=== PATIENT | female | born 1970 | race Caucasian/White ===

== ENCOUNTER 2017-05-15 07:29 | Inpatient (IN) | payer MEDICAID ==
[2017-05-15] MEDS: KETOROLAC 15 MG INJ IV ×2 (13:00→23:01)
[2017-05-15 13:20] LABS: ADD MAN DIFF? NO
[2017-05-15 13:23] LABS: BASOPHILS % 0.4 % (0.0-2.0); EOSINOPHILS % 0.6 % (0.0-7.0); HEMATOCRIT 39.1 % (37.0-47.0); HEMOGLOBIN 13.4 g/dl (12.0-16.0); LYMPHOCYTES # 1.7 10^3/ul (0.8-2.9); LYMPHOCYTES % 24.7 % (15.0-51.0); MEAN CORPUSCULAR HEMOGLOBIN 32.3 pg (29.0-33.0); MEAN CORPUSCULAR HGB CONC 34.3 g/dl (32.0-37.0); MEAN CORPUSCULAR VOLUME 94.2 fl (82.0-101.0); MONOCYTE # 0.5 10^3/ul (0.3-0.9); MONOCYTES % 6.7 % (0.0-11.0); NEUTROPHIL # 4.7 10^3/ul (1.6-7.5); NEUTROPHILS % 67.3 % (39.0-77.0); PLATELET COUNT 241 10^3/UL (140-415); RED BLOOD COUNT 4.15 10^6/ul (4.20-5.40); RED CELL DISTRIBUTION WIDTH 12.5 % (11.5-14.5)
[2017-05-15 13:48] LABS: ALANINE AMINOTRANSFERASE 36 IU/L (13-69); ALBUMIN 4.2 g/dl (3.3-4.9); ALBUMIN/GLOBULIN RATIO 1.31; ALKALINE PHOSPHATASE 70 IU/L (42-121); ANION GAP 12 (8-16); ASPARTATE AMINO TRANSFERASE 20 IU/L (15-46); BILIRUBIN,INDIRECT 0.2 mg/dl (0-1.1); BILIRUBIN,TOTAL 0.2 mg/dl (0.2-1.3); BLOOD UREA NITROGEN 8 mg/dl (7-20); CALCIUM 9.3 mg/dl (8.4-10.2); CARBON DIOXIDE 28 mmol/L (21-31); CHLORIDE 103 mmol/L (97-110); CREATININE 0.52 mg/dl (0.44-1.00); GLUCOSE 100 mg/dl (70-220); POTASSIUM 3.8 mmol/L (3.5-5.1); SODIUM 139 mmol/L (135-144); TOTAL PROTEIN 7.4 g/dl (6.1-8.1)
[2017-05-15] MEDS: morphine 2 MG INJ IV (15:43)
[2017-05-15] MEDS: HYDROCODONE/APAP (10/325) TAB PO (16:01)
[2017-05-15] MEDS ORDERED: NAPROXEN 500 MG TAB PO (17:30)
[2017-05-15] MEDS ORDERED: traMADol 50 MG TAB PO (17:30)
[2017-05-15] MEDS ORDERED: ONDANSETRON 4 MG INJ IV (17:30)
[2017-05-15] MEDS ORDERED: NACL 0.9% 3 ML SYG IV (17:30)
[2017-05-15] MEDS: DEXTROSE 5%-0.45% NACL 1,000 ML IV (17:36)
[2017-05-15] MEDS: FAMOTIDINE 20 MG TAB PO (20:08)
[2017-05-15] MEDS ORDERED: NEOSTIGMINE 3 MG/3 ML SYRINGE (20:48)
[2017-05-15] MEDS ORDERED: ROCURONIUM 50 MG INJ (20:48)
[2017-05-15] MEDS ORDERED: GLYCOPYRROLATE 0.4 MG INJ (20:48)
[2017-05-15] MEDS ORDERED: CEFAZOLIN 1 GM INJ (20:48)
[2017-05-15] MEDS ORDERED: PROPOFOL 20 ML (20:48)
[2017-05-15] MEDS ORDERED: MIDAZOLAM 1 MG/ML 2 ML INJ (20:48)
[2017-05-15] MEDS ORDERED: DEXAMETHASONE 4 MG/ML 1 ML INJ (20:49)
[2017-05-15] MEDS ORDERED: FENTAnyl 50 MCG/ML VIAL (20:49)
[2017-05-15] MEDS ORDERED: ONDANSETRON 4 MG INJ (20:49)
[2017-05-15] MEDS ORDERED: LABETALOL HCL 20MG INJ (21:05)
[2017-05-15] MEDS ORDERED: HYDROCODONE/APAP (5/325) TAB PO (21:30)
[2017-05-15] MEDS ORDERED: morphine 2 MG INJ IV (21:30)
[2017-05-15] MEDS: D5-NS + KCL 20 MEQ 1,000 ML IV (22:17)
[2017-05-15] MEDS ORDERED: IBUPROFEN 600 MG TAB (22:52)
[2017-05-16] MEDS: ENOXAPARIN 40 MG/0.4 ML SYG SC (06:49)
[2017-05-16] MEDS: D5-NS + KCL 20 MEQ 1,000 ML IV (07:17)
[2017-05-16] MEDS: FAMOTIDINE 20 MG TAB PO (09:45)
[2017-05-18] MEDS ORDERED: IBUPROFEN 600 MG TAB PO (17:30)
== END 2017-05-16 11:30 | disposition home or self-care (01) | DRG 395 ==
LOC: FTE 07:29 → MS2 16:47
PROC: 0DCQ7ZZ Extirpation of Matter from Anus, Via Natural or Artificial Opening (ICD-10-PCS; principal; 2017-05-15 19:30)
DX: T18.5XXA Foreign body in anus and rectum, initial encounter (principal); I10 Essential (primary) hypertension; K62.89 Other specified diseases of anus and rectum; X58.XXXA Exposure to other specified factors, initial encounter; Y93.89 Activity, other specified; Y92.89 Other specified places as the place of occurrence of the external cause; Y99.8 Other external cause status; K59.00 Constipation, unspecified
CPT/HCPCS: 36415; 74019; 74176; 80053; 85025; 88300; 96374; 99285-25

== ENCOUNTER 2018-09-01 09:01 | Emergency (ER) | payer MEDICAID ==
[2018-09-01] MEDS: KETOROLAC 30 MG INJ IM (10:15)
== END 2018-09-01 10:21 | disposition home or self-care (01) ==
LOC: FTE 09:01
DX: M54.5 Low back pain (principal); I10 Essential (primary) hypertension; M79.671 Pain in right foot; M79.672 Pain in left foot
CPT/HCPCS: 81025; 96372; 99284-25